=== PATIENT | female | born 1985 | race Caucasian/White ===

== ENCOUNTER 2022-09-28 08:17 | Emergency (ER) | payer BC ==
[~2022-09-28] VITALS: Ht 157.5 cm; Wt 62.6 kg
--- NOTE | 2022-09-28 08:42 | NUR ---
BIBSELF C/O PAIN R/T BEE STING LEFT FOOT 4TH FINGER
[2022-09-28] MEDS ORDERED: CLINDAMYCIN HCL 150 MG CAPSULE PO ONE (09:00)
[2022-09-28] MEDS ORDERED: CLINDAMYCIN HCL 150 MG CAPSULE ONE (09:04)
[2022-09-28] MEDS ORDERED: CLIN300C12 PO (09:11)
[2022-09-28 09:19] VITALS: BP 117/70
== END 2022-09-28 09:20 | disposition home or self-care (01) ==
LOC: ER 08:48
DX: L03.116 Cellulitis of left lower limb (principal)

== ENCOUNTER 2025-05-23 13:00 | Emergency (ER) | payer BC ==
[~2025-05-23] VITALS: Ht 154.9 cm; Wt 60.3 kg
[~2025-05-23 13:00] MED LIST: CLIN300C12 PO
[2025-05-23 14:59] LABS: APPEARANCE,URINE CLEAR (CLEAR); BLOOD, URINE TRACE-INTA Ery/uL (NEGATIVE); LEUKOCYTE ESTERASE ,URINE 2+ (NEGATIVE); NITRITE, URINE NEGATIVE (NEGATIVE); UGLUCOSE NEGATIVE (NEGATIVE)
[2025-05-23 15:15] LABS: ADD URINE CULTURE YES; SQUAMOUS EPITHELIAL CELL,UR Moderate /HPF (None Seen)
[2025-05-23] MEDS ORDERED: NITR100C PO (15:27)
[2025-05-23] MEDS ORDERED: VALA500T40 PO (15:27)
[2025-05-23] MEDS ORDERED: PHEN-895 PO (15:27)
[2025-05-23 15:50] VITALS: BP 133/87; TEMP 98.3; O2SAT 99
== END 2025-05-23 15:50 | disposition home or self-care (01) ==
LOC: ER 13:21
DX: A60.09 Herpesviral infection of other urogenital tract (principal); N30.00 Acute cystitis without hematuria; Z79.624 Long term (current) use of inhibitors of nucleotide synthesis
CPT/HCPCS: 81001; 87086-TC